=== PATIENT | female | born 1970 | race Caucasian/White ===

== ENCOUNTER 2016-06-23 16:50 | Emergency (ER) | payer OTHER ==
[2016-06-23] MEDS ORDERED: DIPHENHYDRAMINE HCL 50 MG/1 ML VIAL ONE ×3 (18:07→20:33)
[2016-06-23] MEDS ORDERED: SODIUM CHLORIDE 0.9% 0 ML IV ONE (18:27)
[2016-06-23] MEDS ORDERED: PROMETHAZINE HCL 25 MG/ML VIAL ONE ×2 (18:27→18:42)
[2016-06-23 18:28] LABS: ABSOLUTE NEUTROPHIL COUNT 3.6 K/mm3 (1.8-7.7); BASO % 0.5 % (0.2-1.0); EOS # 0.4 (0.0-0.5); EOS % 4.5 % (0.9-2.9); HEMATOCRIT 47.5 % (37.0-47.0); HEMOGLOBIN 15.9 gm/l (12.0-16.0); IMM NEUT% 0.3 % (0-1); LYMPH % 45.8 % (15-45); MEAN CELL VOLUME 90.5 fl (81.0-99.0); MEAN CORPUSCULAR HEMOGLOBIN 30.3 pg (27.0-31.0); MEAN CORPUSCULAR HGB CONC 33.5 g/dl (33.0-37.0); MEAN PLATELET VOLUME 10.3 fl (7.4-10.4); MONO # 0.8 (0.0-0.8); MONO % 8.6 % (4-12); NEUT % 40.3 % (43-75); PLATELET COUNT 227 K/mm3 (130-400); RED CELL DISTRIBUTION WIDTH 12.5 % (11.5-14.5)
[2016-06-23] MEDS ORDERED: VANCOMYCIN HCL 1.5 G in SODIUM CHLORIDE 0.9% 500 ML IV ONE (18:30)
[2016-06-23] MEDS ORDERED: DOXYCYCLINE HYCLATE 100 MG TABLET ONE (21:11)
[2016-06-23] MEDS ORDERED: HYDROCODONE/ACETAMINOPHEN 5/325MG TABLET ONE (21:11)
== END 2016-06-23 21:51 | disposition home or self-care (01) ==
LOC: ED 16:50
DX: L03.116 Cellulitis of left lower limb (principal); E03.9 Hypothyroidism, unspecified; R01.1 Cardiac murmur, unspecified; F17.210 Nicotine dependence, cigarettes, uncomplicated; Z86.73 Personal history of transient ischemic attack (TIA), and cerebral infarction without residual deficits
CPT/HCPCS: 85025; 96375; 96376 ×2; 99284 ×2; 96372; 96365; 96366; J1200 ×3; J2550; A9270 ×2; J7040; J3370

== ENCOUNTER 2016-07-10 20:16 | Emergency (ER) | payer OTHER ==
[2016-07-10] MEDS ORDERED: OLANZAPINE 5 MG TABLET PO SCH (21:00)
[2016-07-10] MEDS ORDERED: OLANZAPINE 10 MG IM ONE (21:00)
== END 2016-07-10 21:40 | disposition home or self-care (01) ==
LOC: ED 20:16
DX: F32.9 Major depressive disorder, single episode, unspecified (principal); R01.1 Cardiac murmur, unspecified; Z86.718 Personal history of other venous thrombosis and embolism; E27.1 Primary adrenocortical insufficiency; M79.7 Fibromyalgia; E11.9 Type 2 diabetes mellitus without complications; F17.210 Nicotine dependence, cigarettes, uncomplicated; Z86.73 Personal history of transient ischemic attack (TIA), and cerebral infarction without residual deficits; G90.1 Familial dysautonomia [Riley-Day]; Z79.899 Other long term (current) drug therapy; Z79.891 Long term (current) use of opiate analgesic; Z88.1 Allergy status to other antibiotic agents; Z88.0 Allergy status to penicillin; Z88.2 Allergy status to sulfonamides; Z88.8 Allergy status to other drugs, medicaments and biological substances; Z91.048 Other nonmedicinal substance allergy status

== ENCOUNTER 2016-09-13 17:10 | Observation (INO) | payer OTHER ==
[2016-09-13] MEDS ORDERED: LACTATED RINGERS 1,000 ML ONE ×2 (17:31→19:51)
[2016-09-13] MEDS ORDERED: HYDROCORTISONE SOD SUCC 100 MG VIAL ONE ×2 (17:52→19:51)
[2016-09-13 18:00] LABS: BASO # 0.1 K/mm3 (0.0-0.2); BASO % 0.7 % (0.2-1.0); EOS # 0.4 (0.0-0.5); EOS % 6.1 % (0.9-2.9); HEMOGLOBIN 15.2 gm/l (12.0-16.0); IMM NEUT% 0.3 % (0-1); LYMPH # 3.6 (1.0-4.8); LYMPH % 51.9 % (15-45); MEAN CELL VOLUME 88.4 fl (81.0-99.0); MEAN CORPUSCULAR HEMOGLOBIN 29.9 pg (27.0-31.0); MEAN CORPUSCULAR HGB CONC 33.8 g/dl (33.0-37.0); MEAN PLATELET VOLUME 10.5 fl (7.4-10.4); MONO # 0.8 (0.0-0.8); MONO % 11.8 % (4-12); NEUT % 29.2 % (43-75); PLATELET COUNT 234 K/mm3 (130-400); RED CELL DISTRIBUTION WIDTH 13.6 % (11.5-14.5)
[2016-09-13 18:20] LABS: ALB/GLOB RATIO 1.4 (>1.0); ALBUMIN 3.9 gm/dL (3.5-5.7); CALCIUM 9.5 mg/dL (8.6-10.3)
[2016-09-13] MEDS ORDERED: SODIUM CHLORIDE 0.9% 50 ML IV ONE (19:34)
[2016-09-13] MEDS ORDERED: PROMETHAZINE HCL 25 MG/ML VIAL ONE (19:35)
[2016-09-13 19:39] LABS: SPECIFIC GRAVITY 1.015 (1.001-1.030); URINE BILIRUBIN NEGATIVE (NEGATIVE); URINE BLOOD 3+ (NEGATIVE); URINE GLUCOSE (UA) NEGATIVE (NEGATIVE); URINE LEUKOCYTE ESTERASE TRACE (NEGATIVE); URINE NITRITE NEGATIVE (NEGATIVE); URINE PROTEIN NEGATIVE (NEGATIVE); URINE UROBILINOGEN NORMAL (0-1 mg/dl)
[2016-09-13 19:40] LABS: URINE APPEARANCE HAZY; URINE COLOR YELLOW
[2016-09-13 19:54] LABS: URINE BACTERIA 0; URINE CASTS 0-1 HYALINE /lpf; URINE EPITHELIAL CELLS 0-2 /hpf
[2016-09-13] MEDS ORDERED: MENTHOL/CETYLPYRD 1 EACH LOZENGE PO PRN (22:18)
[2016-09-13] MEDS ORDERED: BISACODYL 10 MG SUP PR PRN (22:18)
[2016-09-13] MEDS ORDERED: ACETAMINOPHEN 325 MG TABLET PO PRN (22:18)
[2016-09-13] MEDS ORDERED: BLISTEX LIPSTICK 1 EACH TP PRN (22:18)
[2016-09-13] MEDS ORDERED: MAGNESIUM HYDROXIDE 30 ML UDCUP PO PRN (22:18)
[2016-09-13] MEDS ORDERED: SODIUM CHLORIDE 0.9% 100 ML IV PRN (22:18)
[2016-09-13] MEDS ORDERED: BISACODYL 5 MG TABLET.EC PO PRN (22:18)
[2016-09-13] MEDS ORDERED: NICOTINE POLACRILEX 2 MG LOZENGE PO PRN (22:48)
[2016-09-13 22:50] VITALS: BMI 30.2
[2016-09-13] MEDS ORDERED: HYDROMORPHONE HCL 4 MG TABLET PO PRN (22:53)
[2016-09-13] MEDS ORDERED: PUMP TUBING ONE (23:02)
[2016-09-13] MEDS: SODIUM CHLORIDE 0.9% 1,000 ML IV SCH (23:08)
[2016-09-13] MEDS: ZIPRASIDONE HCL 20 MG CAPSULE PO SCH (23:30)
[2016-09-13] MEDS: PREGABALIN 50 MG CAP PO SCH (23:39)
[2016-09-13] MEDS: MORPHINE SULFATE 15 MG TAB.PRT.SR PO SCH (23:39)
[2016-09-13] MEDS: ACYCLOVIR 400 MG TABLET PO SCH (23:39)
[2016-09-13] MEDS: DULOXETINE HCL 30 MG CAPSULE.DR PO SCH (23:39)
[2016-09-13] MEDS: NICOTINE 21 MG PATCH 1 EACH TD SCH (23:40)
[2016-09-13] MEDS: PROMETHAZINE HCL 25 MG TABLET PO PRN (23:48)
[2016-09-14] MEDS: HYDROMORPHONE HCL 2 MG TABLET PO PRN ×2 (00:06→05:06)
[2016-09-14] MEDS: ZOLPIDEM TARTRATE 5 MG TABLET PO PRN ×2 (00:07→20:52)
[2016-09-14] MEDS: LEVALBUTEROL HCL 0.63 MG/3 ML VIAL.NEB NEB PRN ×2 (00:11→06:16)
[2016-09-14] MEDS: PROMETHAZINE HCL 25 MG TABLET PO PRN (03:07)
[2016-09-14] MEDS ORDERED: MAG HYDROX/AL HYDROX/SIMETH 30 ML UDCUP PO PRN (03:39)
[2016-09-14] MEDS ORDERED: PROMETHAZINE HCL 12.5 MG in SODIUM CHLORIDE 0.9% 50 ML IM PRN (04:04)
[2016-09-14] MEDS: PREGABALIN 50 MG CAP PO SCH ×3 (05:04→20:53)
[2016-09-14] MEDS ORDERED: HYDROCORTISONE 5 MG TABLET PO SCH (06:00)
[2016-09-14 06:44] LABS: CALCIUM 8.9 mg/dL (8.6-10.3)
[2016-09-14] MEDS: LEVOTHYROXINE SODIUM 200 MCG TABLET PO SCH (07:14)
[2016-09-14] MEDS: SODIUM CHLORIDE 0.9% 1,000 ML IV SCH ×2 (07:15→16:23)
--- NOTE | 2016-09-14 08:32 | PDOC43 ---
- Subjective Chief Complaint: dizziness Still reports weakness, dizziness and inability to get up from bed. C/o LUQ abdominal pain and nausea, but wants to eat this a.m. - Objective Vital Signs Temperature 98.9 F 09/14/16 06:54 Pulse Rate 112 09/14/16 07:12 Respiratory Rate 20 09/14/16 06:54 Blood Pressure 107/70 09/14/16 07:12 O2 Saturation by Pulse Oximetry 98 09/14/16 06:54 Oxygen Delivery Method Room Air Oxygen Flow Rate 0 Intake and Output 09/13/16 09/14/16 09/15/16 06:59 06:59 06:59 Intake Total 325 Output Total 450 Balance -125 General: Alert, Oriented x3, Cooperative, No Acute Distress HEENT: Mucous membr. moist/pink Lungs: Clear to Auscultation Bilaterally Cardiovascular: Regular Rate and Rhythm Abdomen: Soft, Tenderness (no response to palpation when distracted, talking about her other medical issues, but then reports LUQ tenderness when paying attention to abdominal exam.), Normal Bowel Sounds, No Masses Extremities: Edema (trace bilateral), Normal Pulses Neurological: Normal Speech Psych/Mental Status: Anxious Laboratory 09/14/16 05:30 09/14/16 05:30 Estimated GFR 132 H Current Medications: Current meds reviewed in EMR. - Problems: Assessment/Plan (1) Hypotension Qualifiers: Hypotension type: unspecified hypotension type Qualifier Code: (I95.9) Hypotension, unspecified Status: ChronicAssessment/Plan: Chronic low BP, patient was discharged last December with BP of 85/50 and was ambulatory and asymptomatic at that time. Now c/o symptoms, dizziness/faintness, with higher BP. Continue supportive care , IV fluids, encourage activity. (2) POTS (postural orthostatic tachycardia syndrome) Status: ChronicAssessment/Plan: Chronic, contributes to above. (3) Personality disorder Status: ChronicAssessment/Plan: Complicates care. 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 (5) DM2 (diabetes mellitus, type 2) Qualifiers: Diabetes mellitus complication status: with neurologic complications Diabetes mellitus complication detail: with autonomic neuropathy Diabetes mellitus correction insulin use: without intermediate teacher use Qualifier Code: ( E11.43) Type 2 diabetes mellitus with diabetic autonomic (poly)neuropathy Status: ChronicAssessment/Plan: Diet controlled, BG good. (6) Williamson disease Status: ChronicAssessment/Plan: On chronic steroid replacement with recent (August 16) reduction in hydrocortisone. Resume prior dose of 20 mg daily. VTE Prophylaxis: not indicated. Disposition: Home when symptoms resolved.
[2016-09-14] MEDS ORDERED: HYDROCORTISONE 5 MG TABLET PO ONE (08:38)
[2016-09-14] MEDS: MORPHINE SULFATE 15 MG TAB.PRT.SR PO SCH ×2 (09:43→20:52)
[2016-09-14] MEDS: ACYCLOVIR 400 MG TABLET PO SCH ×2 (09:44→20:52)
[2016-09-14] MEDS: DULOXETINE HCL 30 MG CAPSULE.DR PO SCH ×2 (09:44→20:53)
[2016-09-14] MEDS: FLUDROCORTISONE ACETATE 0.1 MG TABLET PO SCH (09:45)
[2016-09-14] MEDS: SOMATROPIN SUB-Q SCH (09:45)
[2016-09-14] MEDS: DOCUSATE SODIUM 100 MG CAPSULE PO SCH ×2 (09:45→21:00)
[2016-09-14] MEDS: DIPHENHYDRAMINE HCL 25 MG CAPSULE PO PRN ×3 (09:52→20:52)
[2016-09-14] MEDS: ZIPRASIDONE HCL 20 MG CAPSULE PO SCH ×2 (11:23→20:52)
--- NOTE | 2016-09-14 12:43 | HP ---
KIRA VELAZQUEZ [id number] DATE OF : 1970 DATE OF ADMISSION: 09/13/2016 IDENTIFICATION: Ms. Velazquez is a 46-year-old followed by Dr. Vaughn. She is well known to the Hospitalist service from multiple previous admissions. CHIEF COMPLAINT: Dizziness. HISTORY OF PRESENT ILLNESS: Kira reports onset of dizziness, and faintness almost to the point of passing out at 1400 this afternoon. She says she took blood pressure at home, and it was 53/30. She came to the emergency department where her laboratories were quite benign. Her blood pressure was low, but within the range that it has been on previous hospital admissions. However, she continued to complain of symptoms. She was treated with 2 L of IV fluids, and 200 mg of Solu-Cortef in the emergency department, and referred to the Hospitalist service. She does report that her hydrocortisone dose was decreased from 20 mg daily to 5 mg daily on 08/16/2016, and that up until today she did not have any symptoms from that change in dose. She thinks that today's symptoms might be due to an episode 2 days ago where she went [place] and grandkids. It was quite stressful and she became sick and nauseated. She also drank 1-1/2 beers at that time. She slept all the next day. Today, she felt she was getting better until the sudden onset of dizziness. REVIEW OF SYSTEMS: HEENT: She does report headache along with the faintness. No actual loss of consciousness. Respiratory: She has had some cough, no dyspnea. Cardiac: Some chest tightness. No palpitations. Gastrointestinal: Nausea, no vomiting today. She does report constipation. Genitourinary: She feels that her bladder is falling. No dysuria. Musculoskeletal: Complains of pain in her shoulders and knees. Constitutional: No fevers, or chills. No recent weight change. PAST MEDICAL HISTORY: Extensive. 1. Multiple previous hospitalizations for episodes of hypotension and chest pain. Suspected sepsis, and adrenal crises. 2. Shah hypopituitarism. 3. [place] and Adrien's disease. 4. Dysautonomia with postural orthostasis. 5. Urinary retention. 6. Chronic chest pain last evaluated in December 2015. No coronary artery disease. 7. Chronic nausea. 8. Asthma. 9. Diet controlled diabetes. 10. Fibromyalgia. 11. Lumbosacral spondylosis. 12. Osteoporosis. 13. Osteoarthritis. 14. Previous hospitalizations for suicide attempt in 2015. 15. Recurrent bacteremia due to Port-A-Cath that has resolved since she had her last Port-A-Cath removed. 16. Suspected borderline personality disorder. 17. Major depressive disorder. PAST SURGICAL HISTORY: 1. Tubal ligation. 2. Left breast biopsy. 3. Multiple pituitary surgeries last in 2005. 4. Bilateral adrenalectomy. 5. Total abdominal hysterectomy with bilateral salpingo-oophorectomy. 6. Magana procedure. 7. Appendectomy. 8. Open reduction and internal fixation of left hip fracture. 9. Right and left ulnar nerve transposition. 10. Multiple Port-A-Cath replacements and removals. 11. Right total knee arthroplasty. ALLERGIES: REPORTED TO ADHESIVES, AMITRIPTYLINE, AZTREONAM, BUPROPION, CEFEPIME, CEFTAZIDIME, CEFTRIAXONE, CEPHALEXIN, PROLIA, ERTAPENEM, ERYTHROMYCIN, GENTAMYCIN, IBUPROFEN, LEVOFLOXACIN, LINEZOLID, MANNITOL, METAXALONE, METOPROLOL, MIDODRINE, PAROXETINE, PENICILLIN, PYRIDOSTIGMINE, QUETIAPINE, SULFA, VANCOMYCIN, VENLAFAXINE, ZOLEDRONIC ACID. MEDICATIONS: 1. Hydrocortisone 5 mg by mouth daily. 2. Acyclovir. 3. Abilify. 4. Clonazepam. 5. Duloxetine. 6. Estradiol vaginal. 7. Florinef. 8. Hydromorphone. 9. MS Contin. 10. Xopenex. 11. Levothyroxine. 12. Pregabalin. 13. Promethazine. 14. Somatotropin. 15. Zolpidem. HABITS: She is currently smoking 1 pack per day and does request nicotine replacement. She states she rarely drinks alcohol, but did have the 1-1/2 beers 2 days ago. SOCIAL HISTORY: She is . She lives with her in [place]. FAMILY HISTORY: Her father has colorectal cancer and her mother of colon cancer. Her kids and grandkids are healthy. PHYSICAL EXAMINATION: GENERAL: Patient is pleasant and cooperative this evening. VITAL SIGNS: In the emergency department: Temperature is 98.2 degrees Fahrenheit. Pulse is 95. Blood pressure is 94/47. Respiratory rate is 14. Oxygen saturation is 95% on room air. HEENT: Pupils equal, round, and reactive. Extraocular muscles intact. Oropharynx: She has orthodontia. Oropharynx is moist. CHEST: Does show expiratory wheeze on the left, otherwise clear. HEART: Regular with 2/6 systolic murmur.. ABDOMEN: Obese, soft and nontender. Normal bowel tones. No organomegaly. EXTREMITIES: Good peripheral pulses. No clubbing, cyanosis or edema. NEUROLOGIC: Alert and oriented. No focal deficits. LABORATORY DATA: White blood cell count is 6.8, hemoglobin and hematocrit 15.2 and 45, and platelets 234. D-Dimer is borderline at 0.52. Lactate normal at 1.8. Sodium is slightly low at 133, otherwise chemistries are normal. Potassium is 4.7, chloride 100, CO2 of 23, BUN 8, creatinine 0.8, and glucose 92. Liver enzymes are normal. Troponin I is less than 0.01. Urinalysis is normal except for hematuria with 10 to 15 red blood cells per high powered field. ASSESSMENT: Ms. Velazquez is a complicated 46-year-old with extensive medical history as above. She presents with symptomatic hypotension a month after a decrease in her chronic hydrocortisone dose. She has a very mild hyponatremia, otherwise normal workup. Although her current hypotension is symptomatic by her report, it is notable that as of her last hospitalization in December 2015, she was ambulatory and asymptomatic on the day of discharge with a blood pressure of 85/51 and a mean arterial pressure of 62. PLAN: 1. Refer to observation. 2. Continue IV hydration with normal saline overnight. 3. Increase hydrocortisone dose back to her previous 20 mg daily. 4. Anticipate resolution of symptoms and discharge tomorrow. 5. FULL CODE status. 6. Venous thrombosis risk is low. She does not require prophylaxis. /rachel
[2016-09-14] MEDS: PROMETHAZINE HCL 12.5 MG in SODIUM CHLORIDE 0.9% 50 ML IV PRN ×2 (13:58→20:52)
[2016-09-14] MEDS ORDERED: PROMETHAZINE HCL 25 MG/ML VIAL ONE (20:45)
[2016-09-14] MEDS ORDERED: SODIUM CHLORIDE 0.9% 50 ML IV ONE (20:47)
[2016-09-14] MEDS: LORAZEPAM 1 MG TABLET PO SCH (20:53)
[2016-09-14] MEDS: NICOTINE 21 MG PATCH 1 EACH TD SCH (23:44)
[2016-09-15] MEDS: SODIUM CHLORIDE 0.9% 1,000 ML IV SCH ×2 (00:47→15:36)
[2016-09-15] MEDS: HYDROMORPHONE HCL 2 MG TABLET PO PRN ×3 (01:07→22:31)
[2016-09-15] MEDS: DIPHENHYDRAMINE HCL 25 MG CAPSULE PO PRN ×4 (01:10→23:11)
[2016-09-15] MEDS: LEVALBUTEROL HCL 0.63 MG/3 ML VIAL.NEB NEB PRN (05:26)
[2016-09-15] MEDS: PROMETHAZINE HCL 12.5 MG in SODIUM CHLORIDE 0.9% 50 ML IV PRN ×3 (05:37→20:08)
[2016-09-15] MEDS: HYDROCORTISONE 5 MG TABLET PO SCH (05:43)
[2016-09-15] MEDS: PREGABALIN 50 MG CAP PO SCH ×3 (08:04→20:07)
[2016-09-15] MEDS: LEVOTHYROXINE SODIUM 200 MCG TABLET PO SCH (08:05)
[2016-09-15] MEDS: ZIPRASIDONE HCL 20 MG CAPSULE PO SCH (08:30)
[2016-09-15] MEDS: DULOXETINE HCL 30 MG CAPSULE.DR PO SCH ×2 (08:30→20:07)
[2016-09-15] MEDS: ACYCLOVIR 400 MG TABLET PO SCH ×2 (08:32→20:08)
[2016-09-15] MEDS: MORPHINE SULFATE 15 MG TAB.PRT.SR PO SCH ×2 (08:32→20:08)
[2016-09-15] MEDS: DOCUSATE SODIUM 100 MG CAPSULE PO SCH ×2 (08:32→20:08)
[2016-09-15] MEDS: FLUDROCORTISONE ACETATE 0.1 MG TABLET PO SCH (08:32)
[2016-09-15] MEDS: LORAZEPAM 1 MG TABLET PO SCH ×3 (08:32→16:10)
[2016-09-15] MEDS: ZIPRASIDONE 60 MG PO SCH ×2 (09:11→20:07)
[2016-09-15] MEDS ORDERED: PROMETHAZINE IV PER PHARMACY 1 EACH in SODIUM CHLORIDE 0.9% 50 ML IV PRN (11:11)
[2016-09-15] MEDS: PROMETHAZINE HCL 25 MG TABLET PO PRN (11:24)
[2016-09-15] MEDS ORDERED: DEXAMETHASONE SOD PHOS 4 MG/1 ML VIAL IV ONE (12:13)
[2016-09-15] MEDS ORDERED: IV START KIT ONE (12:48)
[2016-09-15] MEDS ORDERED: SODIUM CHLORIDE 0.9% FLUSH 10 ML ONE (12:48)
[2016-09-15] MEDS ORDERED: HYDROCORTISONE 5 MG TABLET PO SCH (16:00)
--- NOTE | 2016-09-15 16:42 | PDOC43 ---
- Subjective Chief Complaint: dizziness Subjective: Reports Other (complains of persistent dizzinesss) - Objective Vital Signs Temperature 98.1 F 09/15/16 14:25 Pulse Rate 91 09/15/16 14:25 Respiratory Rate 16 09/15/16 14:25 Blood Pressure 109/82 09/15/16 14:25 O2 Saturation by Pulse Oximetry 95 09/15/16 14:25 Oxygen Delivery Method Room Air Oxygen Flow Rate 0 Intake and Output 09/14/16 09/15/16 09/16/16 06:59 06:59 06:59 Intake Total 325 5189 236 Output Total 450 3600 1425 Balance -125 1589 -1189 General: Alert, Oriented x3, Cooperative, No Acute Distress HEENT: Mucous membr. moist/pink Lungs: Clear to Auscultation Bilaterally Cardiovascular: Regular Rate and Rhythm Abdomen: Soft, Normal Bowel Sounds, Non-Distended, No Tenderness Extremities: No Edema Skin: Warm, Dry, Intact Laboratory 09/14/16 05:30 09/15/16 09/15/16 09/14/16 15:57 11:18 21:27 POC Capillary Glucose 134 H 112 H 113 H 09/14/16 17:09 POC Capillary Glucose 116 H Current Medications: Current meds reviewed in EMR. - Problems: Assessment/Plan (1) Raghav disease Status: ChronicAssessment/Plan: On chronic steroid replacement with recent (August 16) reduction in hydrocortisone done by patient despite protests from endocrinology. Resume prior dose of 20 mg daily on admit. - D/W Endocrine today and still feel that she is not adequately dosed and may be showing symptoms of addisonian crisis as above, gave IV decadron today and will start on afternoon dose of hydro- cortizone (2) Hypotension Qualifiers: Hypotension type: unspecified hypotension type Qualifier Code: (I95.9) Hypotension, unspecified Status: ChronicAssessment/Plan: Chronic low BP, but with recent symptoms suggestive of Addisonian crisis Continue supportive care, IV fluids, increase steroid dose, encourage activity. (3) POTS (postural orthostatic tachycardia syndrome) Status: ChronicAssessment/Plan: Chronic, contributes to above. (4) Personality disorder Status: ChronicAssessment/Plan: Complicates care. 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 (6) DM2 (diabetes mellitus, type 2) Qualifiers: Diabetes mellitus complication status: with neurologic complications Diabetes mellitus complication detail: with autonomic neuropathy Diabetes mellitus long lines operator insulin use: without long lines operator use Qualifier Code: ( E11.43) Type 2 diabetes mellitus with diabetic autonomic (poly)neuropathy Status: ChronicAssessment/Plan: Diet controlled, BG good. (7) Chronic pain Qualifiers: Chronic pain type: other chronic pain Qualifier Code: (G89.29) Other chronic pain Status: ChronicAssessment/Plan: on usual narcotic doses VTE Prophylaxis: not indicated. Disposition: Home when symptoms resolved, probably in am.
[2016-09-15] MEDS: ZOLPIDEM TARTRATE 5 MG TABLET PO PRN (20:08)
[2016-09-15] MEDS: NICOTINE 21 MG PATCH 1 EACH TD SCH (22:57)
[2016-09-16] MEDS: SODIUM CHLORIDE 0.9% 1,000 ML IV SCH ×3 (00:34→09:00)
[2016-09-16] MEDS: PROMETHAZINE HCL 12.5 MG in SODIUM CHLORIDE 0.9% 50 ML IV PRN ×3 (00:35→08:03)
[2016-09-16] MEDS ORDERED: PROMETHAZINE HCL 25 MG/ML VIAL ONE (03:25)
[2016-09-16] MEDS: PREGABALIN 50 MG CAP PO SCH (05:10)
[2016-09-16] MEDS: HYDROCORTISONE 5 MG TABLET PO SCH (05:11)
[2016-09-16 07:37] VITALS: BP 138/78
[2016-09-16] MEDS: LEVOTHYROXINE SODIUM 200 MCG TABLET PO SCH (07:40)
[2016-09-16] MEDS: HYDROMORPHONE HCL 2 MG TABLET PO PRN (08:02)
[2016-09-16] MEDS: LORAZEPAM 1 MG TABLET PO SCH (09:12)
[2016-09-16] MEDS: DULOXETINE HCL 30 MG CAPSULE.DR PO SCH (09:12)
[2016-09-16] MEDS: ACYCLOVIR 400 MG TABLET PO SCH (09:13)
[2016-09-16] MEDS: MORPHINE SULFATE 15 MG TAB.PRT.SR PO SCH (09:13)
[2016-09-16] MEDS: FLUDROCORTISONE ACETATE 0.1 MG TABLET PO SCH (09:13)
[2016-09-16] MEDS: DOCUSATE SODIUM 100 MG CAPSULE PO SCH (09:13)
[2016-09-16] MEDS: ZIPRASIDONE 60 MG PO SCH (09:14)
[2016-09-16] MEDS: SOMATROPIN SUB-Q SCH (09:16)
--- NOTE | 2016-09-16 13:08 | DS ---
Tina Velazquez [id number] DATE OF ADMISSION: 09/13/2016 DATE OF DISCHARGE: 09/16/2016 DISCHARGE DIAGNOSES: 1. Addisonian crisis due to inadequate hydrocortisone replacement causing hypotension and dizziness. 2. Chronic postural orthostatic tachycardia syndrome. 3. Personality disorder not otherwise specified. 4. Panhypopituitarism. 5. Adult onset diabetes. 6. Chronic pain. TO SUMMARIZE THE ADMISSION AND HOSPITAL COURSE: The patient is a 46-year-old female with complex medical problems who presented with complaints of dizziness on standing with orthostasis along with low blood pressure. In the emergency department she received 2 liters of IV fluids. She got a single IV dose of [id number]. She reported a rapid reduction in her hydrocortisone dosage from 20 mg daily to 5 mg daily on August 16 and since then her symptoms have progressively gotten worse. She has this fixed perception that she is suffering from Adrien's disease and feels like she is getting to much hydrocortisone. She feels like her body is producing cortisol in spite of bilateral radical adrenalectomies. She initially was treated with hydration and oral hydrocortisone, but had persistent hypotension and dizziness despite this. We increased her oral hydrocortisone to twice daily and gave her an additional dose of dexamethasone on September 15. Following that intervention she had normalization of her blood pressures and resolution of her symptoms. She was felt to be medically stable for discharge on September 16. PHYSICAL EXAMINATION: VITALS: At discharge showed a temperature of 98.0, pulse 96, blood pressure 138/78, respirations 17, oxygen saturation 100% on room air. Body mass index is 30.2, weight is 79.8 kg. GENERAL: This is a obese female in no acute distress. HEENT: Unremarkable. NECK: Supple without lymphadenopathy or thyromegaly. LUNGS: Clear to auscultation bilaterally. CARDIOVASCULAR: Revealed a regular rate and rhythm without a murmur. ABDOMEN: Soft, nontender, nondistended with positive bowel sounds. LABORATORY STUDIES: Done most recently included a chemistry profile performed on September 14 showing a sodium of 135, potassium 4.3, carbon dioxide 26, BUN 9, creatinine 0.5. CBC done on September 13 was normal with a hemoglobin of 15.2. DISPOSITION: Home. DISCHARGE CONDITION: Good. FOLLOW UP: Has been scheduled with her primary care provider Dr. Ruben Downing on September 22 at 1:00 p.m. Recommend she follow up with her acrobatic dancer Dr. Sydney Davila hopefully in the next month. DISCHARGE MEDICATIONS: I increased her hydrocortisone to 20 mg every morning and 10 mg every evening and the afternoon. She will resume her usual home medications includin. Ambien 5 mg at bedtime as needed for sleep. 2. Somatotropin 0.3 mg subcutaneously daily. 3. Phenergan 25 to 50 mg every four hours as needed for nausea. 4. MS Contin 15 mg twice daily. 5. Prilosec 20 mg daily. 6. Lyrica 200 mg three times daily at 6:00 a.m., 4:00 p.m., 9:00 p.m. 7. Xopenex meter dose inhaler two inhalations three times daily as needed for wheezing. 8. Levothroid 200 mcg daily. 9. Dilaudid 8 mg twice daily. 10. Estradiol 10 mcg vaginally every three days. 11. Florinef 0.1 mg by mouth daily. 12. Cymbalta 60 mg by mouth twice daily. 13. Zovirax 100 mg by mouth twice daily. JOB: [id number] CC: Dr. Sydney Davila at [facility] Dr. Ruben Downing in [place]
== END 2016-09-16 09:40 | disposition home or self-care (01) ==
LOC: ED 17:10 → MS 21:27
PROVIDERS: ADMIT Family Medicine; ATTEND Family Medicine
DX: E27.2 Addisonian crisis (principal); I95.9 Hypotension, unspecified; I49.8 Other specified cardiac arrhythmias; F60.9 Personality disorder, unspecified; E23.0 Hypopituitarism; G89.29 Other chronic pain; E87.1 Hypo-osmolality and hyponatremia; J45.20 Mild intermittent asthma, uncomplicated; E11.43 Type 2 diabetes mellitus with diabetic autonomic (poly)neuropathy